=== PATIENT | female | born 1950 | race African-American/Black ===

== ENCOUNTER → 2018-06-03 | Outpatient (CLI) | payer OTHER ==
--- NOTE | ~2018-06-03 | P ---
[facility] [place] [address] PROCEDURE REPORT Name: EDUARDO LOPEZ Room #: REG SEBASTIAN Mckeon#: [id number] Admission: 06/03/18 Attend Phys: Jensen Biggs Discharge: Date of : 54 Report #: [id number] THIS REPORT FOR: //name// CC: Jensen Mcfarland DATE OF SERVICE: 06/03/2018 PROCEDURE: Implantable loop recorder implantation. PREOPERATIVE DIAGNOSES: Palpitations and presyncope. POSTOPERATIVE DIAGNOSES: Palpitations and presyncope. HISTORY: The patient is a 68-year-old female with recurrent palpitations and presyncopal symptoms, here for implantable loop recorder insertion. DESCRIPTION OF PROCEDURE: The patient underwent informed consent. She was prepped in a sterile fashion. I then injected lidocaine at the incision site. Incision was made. The device was injected under the skin and I performed a single layer of suture with 3-0 Vicryl. There were no complications or significant bleeding. The implanted monitor was a [employer]. The device was programmed to its nominal settings looking for any pauses or significant tachyarrhythmias. CONCLUSION: Successful implantable loop recorder insertion. By: [id number] Joe Mcdonough MD /teagan
[2018-06-03 12:51] VITALS: BP 144/74
== END | disposition home or self-care (01) ==
LOC: CATH 06:23
DX: R55 Syncope and collapse (principal); R00.2 Palpitations

== ENCOUNTER → 2020-06-20 | Outpatient (CLI) | payer OTHER | LOC: SJCVCIMAG 10:20 | PROVIDERS: ATTEND Nuclear Medicine Nuclear Cardiology | DX: R22.43 Localized swelling, mass and lump, lower limb, bilateral (principal); M79.604 Pain in right leg; M79.605 Pain in left leg ==

== ENCOUNTER → 2021-04-08 | Outpatient (CLI) | payer OTHER ==
--- NOTE | 2021-04-08 13:15 | CATHLAB ---
[facility] [place] [address] INVASIVE PROCEDURE REPORT Name: MANUEL LOPEZFATEMEH BRANTLEY Room #: REG SEBASTIAN Mckeon#: [id number] Admission: 04/08/21 Attend Phys: Jensen Biggs Discharge: Date of : 54 Report #: [id number] THIS REPORT FOR: cc: Rosalia Mcfarland MD, Julie MD Lammoglia, Francisco J. MD ~ APPROVED REPORT Study performed: 04/08/2021 11:00:58 Patient Status: Out-Patient Room #: Event Personnel: Jensen Biggs MD Exam: Linq Monitor Removal Conclusion Procedure dictated into [facility] please see report <ELECTRONICALLY SIGNED> By: Jensen Biggs MD 04/08/21 1315 14 Jensen Biggs MD /INF
[2021-04-08 13:18] VITALS: BP 141/73
--- NOTE | 2021-04-09 13:02 | P ---
[facility] [place] [address] PROCEDURE REPORT Name: EDUARDO LOPEZ Room #: REG SEBASTIAN Mike#: [id number] Admission: 04/08/21 Attend Phys: Jensen Biggs Discharge: Date of : 54 Report #: [id number] THIS REPORT FOR: cc: Rosalia Mcfarland MD, Julie MD Lammoglia,Jensen Cornejo MD ~ DATE OF SERVICE: 04/08/2021 PROCEDURE: Removal of a previously implanted loop recorder. INDICATIONS: A 71-year-old female patient with device pain, and device being at end of life with no battery energy present. DESCRIPTION OF PROCEDURE: After informed consent was obtained, the patient was brought to the cardiac catheterization laboratory, prepped and hold. Chest was prepped and draped in the usual sterile manner. Utilizing 1% lidocaine, the prior incision site was instilled. The same 25-gauge needle and lidocaine 1% was utilized to instill subcutaneously around the device. Utilizing a #11 blade, an incision was made and with both sharp and blunt dissection the device was obtained and explanted. A [id number]-[id number] suture was then placed in the subcutaneous tissue to obliterate the pocket. The skin was closed with 3-0 Vicryl in a subcuticular stitch. Dermabond was placed, Steri-Strips, 4 x 4, Opsite. The patient tolerated the procedure well. There were no complications. No significant blood loss. <ELECTRONICALLY SIGNED> By: Jensen Biggs MD 04/09/21 1302 1211 [id number] Jensen Biggs MD /nt
== END | disposition home or self-care (01) ==
LOC: CATH 09:49
PROVIDERS: ATTEND Internal Medicine
DX: Z45.09 Encounter for adjustment and management of other cardiac device (principal)